=== PATIENT | female | born 1960 | race Caucasian/White ===

== ENCOUNTER 2017-06-08 08:59 | Emergency (ER) | payer MEDICARE, OTHER ==
[2017-06-08 09:16] VITALS: BP 123/71
[2017-06-08] MEDS ORDERED: Triamcinolone Acetonide 40 MG/ML 1 ML MDV INJECT ONE (09:27)
[2017-06-08] MEDS ORDERED: hydrOXYzine HCl 50 MG/ML SDV IM ONE (09:29)
--- NOTE | 2017-06-12 08:10 | ER ---
Date of Service: 06/08/2017 HISTORY OF PRESENT ILLNESS: Sandra presents to the emergency room with complaints of rash that she has been experiencing for the past 1 to 2 days. She states that they are extremely pruritic and located primarily on her torso. She states that she has been experiencing this since yesterday. She states that she has not been experiencing any fever or chills or throat tightness. She denies any exposure to any known allergens. PAST MEDICAL HISTORY: 1. Breast cancer. 2. Type 2 diabetes mellitus. 3. Depression. 4. Dyslipidemia. 5. Bipolar disorder. MEDICATIONS: 1. Metformin. 2. Bupropion. 3. Lipitor. 4. Metoprolol succinate. 5. Lisinopril. 6. Victoza. 7. Lasix. 8. Depakote. 9. Arimidex. 10.Fosamax. ALLERGIES: Penicillin. REVIEW OF SYSTEMS: Denies any fever, chills, chest tightness, shortness of breath, throat tightness, nausea, vomiting or diarrhea. Please see history of present illness. PHYSICAL EXAMINATION: General: This is a 56-year-old female patient, who is in no acute distress. Vital Signs: Heart rate is 109, blood pressure is 123/71, temperature is 36.1, respiratory rate 16. Skin: Warm, pink, and dry. HEENT: Head: Normocephalic, atraumatic. Eyes, PERRLA. Extraocular movements are intact. Mouth, oral mucosa is moist. Lungs: Clear to auscultation. Heart: Regular rate and rhythm. Skin: Does have some scattered pruritic raised erythematous regions to her torso. No obvious urticaria noted. Neurologic: She is alert, oriented, and answers all questions appropriately. ASSESSMENT: Allergic reaction. PLAN: The patient was given injection of hydroxyzine 50 mg IM and triamcinolone 40 mg IM. The patient will be discharged. We will start her on prednisone 40 mg once daily for 5 days. She can continue to take Benadryl 50 mg every 4 to 6 hours as needed for itching. All questions were answered. MWK: 06/12/2017 05:54:08 MODL: 06/12/2017 06:15:11 /[id number]
== END 2017-06-08 09:50 | disposition home or self-care (01) ==
LOC: VM.ED 08:59
DX: T78.40XA Allergy, unspecified, initial encounter (principal); L29.9 Pruritus, unspecified; L53.9 Erythematous condition, unspecified; E11.9 Type 2 diabetes mellitus without complications; E78.5 Hyperlipidemia, unspecified; F31.9 Bipolar disorder, unspecified; Z79.84 Long term (current) use of oral hypoglycemic drugs; Z85.3 Personal history of malignant neoplasm of breast; Z88.0 Allergy status to penicillin
CPT/HCPCS: 96372; 99282; J3301; J3410

== ENCOUNTER 2017-11-22 10:09 | Emergency (ER) | payer MEDICARE, SELFPAY ==
[2017-11-22 11:16] VITALS: BP 132/72
[2017-11-22 11:30] LABS: CHLORIDE,CL 103 mmol/L (98-107); SODIUM,NA 138 mmol/L (136-145)
[2017-11-22] MEDS ORDERED: Iopamidol 612 MG/ML 100 ML Bottle IVPUSH ONE (12:35)
--- NOTE | 2017-11-22 19:06 | EDM.PDOC ---
ED HPI GENERAL MEDICAL PROBLEM - General Chief Complaint: Chest Pain Stated Complaint: CHEST PAIN Time Seen by Provider: 11/22/17 10:20 Source of Information: Reports: Patient History Limitations: Reports: No Limitations - History of Present Illness INITIAL COMMENTS - FREE TEXT/NARRATIVE: PtSabina presents to ER with complaints of L anteriolateral chest wall pain, worse with movement. She denies any fever or chills. She states that she recently finished radiation of breast cancer. She denies any substernal chest pain. No jaw, arm, neck or back pain. She has a history of CAD and states the discomfort is not similar to her cardiac type pain. She denies any recent trips or moments of immobility. Onset: Today Onset Date: 11/22/17 Onset Time: 19:05 Duration: Intermittent Location: Reports: Chest Quality: Reports: Burning, Sharp, Throbbing Treatments COUNTER TACKER: Reports: Nitroglycerin, Other Medication(s) Other Treatments COUNTER TACKER: baby aspirin - Related Data Allergies Allergy/AdvReac Type Severity Reaction Status Date / Time Penicillins Allergy Swelling Verified 11/22/17 10:58 Home Meds: Home Meds Alendronate [Fosamax] 70 mg PO WEEKLY 03/29/16 [History] Anastrozole [Arimidex] 1 mg PO DAILY 03/29/16 [History] Divalproex Sodium [Depakote] 250 mg PO BID 03/29/16 [History] Furosemide [Lasix] 20 mg PO DAILY 03/29/16 [History] Liraglutide [Victoza] 1.2 ml SQ DAILY 03/29/16 [History] Lisinopril 10 mg PO DAILY 03/29/16 [History] Metoprolol Succinate 50 mg PO DAILY 03/29/16 [History] atorvaSTATin [Lipitor] 40 mg PO DAILY 03/29/16 [History] buPROPion [buPROPion XL] 150 mg PO DAILY 03/29/16 [History] metFORMIN HCl [Metformin HCl] 1,000 mg PO BID 03/29/16 [History] Past Medical History Cardiovascular History: Reports: CAD, High Cholesterol, Hypertension, [place] Neurological History: Reports: TIA Psychiatric History: Reports: Bipolar Endocrine/Metabolic History: Reports: Diabetes, Type II Oncologic (Cancer) History: Reports: Breast Social & Family History - Tobacco Use Smoking Status *Q: Current Every Day Smoker Years of Tobacco use: 37 Packs/Tins Daily: 1 - Recreational Drug Use Recreational Drug Use: No ED ROS GENERAL - Review of Systems Review Of Systems: See Below Constitutional: Reports: No Symptoms HEENT: Reports: No Symptoms Respiratory: Reports: Pleuritic Chest Pain, Other (recent radiation) Cardiovascular: Reports: No Symptoms. Denies: Dyspnea on Exertion, Edema, Lightheadedness, Orthopnea, Palpitations, PND Endocrine: Reports: No Symptoms GI/Abdominal: Reports: No Symptoms : Reports: No Symptoms Musculoskeletal: Reports: Other (L anteriolateral chest pain) Skin: Reports: No Symptoms Neurological: Reports: No Symptoms Psychiatric: Reports: No Symptoms Hematologic/Lymphatic: Reports: No Symptoms Immunologic: Reports: No Symptoms ED EXAM, GENERAL - Physical Exam Exam: See Below Exam Limited By: No Limitations General Appearance: Alert, WD/WN, No Apparent Distress Eye Exam: Bilateral Eye: EOMI, Normal Fundi Ears: Normal External Exam, Normal Canal, Hearing Grossly Normal, Normal TMs Nose: Normal Inspection, Normal Mucosa, No Blood Throat/Mouth: Normal Inspection, Normal Lips, Normal Teeth, Normal Gums, Normal Oropharynx, Normal Voice, No Airway Compromise Head: Atraumatic, Normocephalic Neck: Normal Inspection, Supple, Non-Tender, Full Range of Motion Respiratory/Chest: No Respiratory Distress, Lungs Clear, Normal Breath Sounds, No Accessory Muscle Use, Chest Non-Tender Cardiovascular: Normal Peripheral Pulses, Regular Rate, Rhythm, No Edema, No Gallop, No JVD, No Murmur, No Rub GI/Abdominal: Normal Bowel Sounds, Soft, Non-Tender, No Organomegaly, No Distention, No Abnormal Bruit, No Mass (Female) Exam: Deferred Rectal (Female) Exam: Deferred Back Exam: Normal Inspection, Full Range of Motion Extremities: Normal Inspection, Normal Range of Motion, Non-Tender, Normal Capillary Refill, No Pedal Edema Neurological: Alert, Oriented, CN II-XII Intact, Normal Cognition, Normal Gait, Normal Reflexes, No Motor/Sensory Deficits Psychiatric: Normal Affect, Normal Mood Skin Exam: Warm, Dry, Intact, Normal Color, No Rash Lymphatic: No Adenopathy EKG INTERPRETATION Rhythm: NSR [place]: Normal P-Wave: Present QRS: Normal ST-T: Normal QT: Normal Course - Vital Signs Last Recorded V/S: Last Vital Signs Temp 37.2 C 11/22/17 10:10 Pulse 96 11/22/17 10:10 Resp 20 11/22/17 10:10 BP 132/72 11/22/17 10:10 Pulse Ox 98 11/22/17 10:10 - Orders/Labs/Meds Orders: Active Orders 24 hr Category Date Time Status EKG Documentation Completion [RC] STAT Care 11/22/17 10:36 Active Chest 2V [CR] Stat Exams 11/22/17 10:36 Taken PE Chest [Ang Chest] [CT] Stat Exams 11/22/17 11:38 Taken Labs: Laboratory Tests 11/22/17 11/22/17 11/22/17 Range/Units 10:56 10:56 10:56 WBC 8.1 (4.0-10.0) x10^3/uL RBC 4.13 (4.00-5.50) x10^6/uL Hgb 12.4 D (12.0-16.0) g/dL Hct 37.6 (33.0-47.0) % MCV 91.0 (78.0-93.0) fL MCH 30.0 (26.0-32.0) pg MCHC 33.0 (32.0-36.0) g/dL RDW Coeff of Izabela 14.0 (10.0-15.0) % Plt Count 199 D (130-400) x10^3/uL Neut % (Auto) 66.6 (50.0-80.0) % Lymph % (Auto) 25.1 (25.0-50.0) % [place] % (Auto) 6.3 (2.0-11.0) % Eos % (Auto) 1.8 (0.0-4.0) % Baso % (Auto) 0.2 (0.2-1.2) % PT 10.4 (9.8-11.8) SEC INR 1.0 L (2.0-3.5) D-Dimer, Quantitative 0.66 H (<=0.58) mg/LFEU Sodium 138 (136-145) mmol/L Potassium 4.3 (3.5-5.1) mmol/L Chloride 103 (98-107) mmol/L Carbon Dioxide 25 (21-32) mmol/L BUN 14 (7-18) mg/dL Creatinine 0.9 (0.55-1.02) mg/dL Est Cr Clr Drug Dosing 65.45 mL/min Estimated GFR (MDRD) > 60 Glucose 147 H (74-106) mg/dL Calcium 9.3 (8.5-10.1) mg/dL Corrected Calcium 9.62 (8.5-10.1) mg/dL Total Bilirubin 0.4 (0.2-1.0) mg/dL AST 22 (15-37) U/L ALT 31 (14-59) U/L Alkaline Phosphatase 79 (46-116) U/L Troponin I < 0.017 (<=0.056) ng/mL C-Reactive Protein < 0.2 (<=0.9) mg/dL NT-Pro-B Natriuret Pep 154 H (<=125) pg/mL Total Protein 7.4 (6.4-8.2) g/dL Albumin 3.6 (3.4-5.0) g/dL Globulin 3.8 Albumin/Globulin Ratio 0.95 Meds: Medications Discontinued Medications Generic Name Dose Route Start Last Admin Trade Name Freq PRN Reason Stop Dose Admin Iopamidol 100 ml 11/22/17 12:35 11/22/17 12:36 Isovue-300 (61%) IVPUSH 11/22/17 12:36 100 ml ONETIME ONE Administration - Radiology Interpretation Free Text/Narrative:: CXR within normal limits. CT angiogram of chest negative for PE Departure - Departure Time of Disposition: 14:35 Disposition: Home, Self-Care 01 Condition: Good Clinical Impression: Chest wall pain, Pain after radiation therapy - Discharge Information Instructions: Chest Wall Pain, [id number], External Beam Radiation Therapy, Care After Referrals: Myles Collado MD [Primary Care Provider] - Forms: ED Department Discharge Additional Instructions: [place] 5/325mg 1 every 6 hours as needed for pain. Ibuprofen 600mg every 6 hours for pain. Prednisone 40mg once daily until gone. Follow-up in clinic next week for recheck. - My Orders Last 24 Hours: My Active Orders 11/22/17 10:36 EKG Documentation Completion [RC] STAT Chest 2V [CR] Stat 11/22/17 11:38 PE Chest [Ang Chest] [CT] Stat - Assessment/Plan Last 24 Hours: My Active Orders 11/22/17 10:36 EKG Documentation Completion [RC] STAT Chest 2V [CR] Stat 11/22/17 11:38 PE Chest [Ang Chest] [CT] Stat
== END 2017-11-22 14:35 | disposition home or self-care (01) ==
LOC: VM.ED 10:09
DX: R07.89 Other chest pain (principal); G89.18 Other acute postprocedural pain; C50.919 Malignant neoplasm of unspecified site of unspecified female breast; E78.00 Pure hypercholesterolemia, unspecified; I10 Essential (primary) hypertension; E11.9 Type 2 diabetes mellitus without complications; F17.210 Nicotine dependence, cigarettes, uncomplicated; Z88.0 Allergy status to penicillin; Z79.899 Other long term (current) drug therapy
CPT/HCPCS: 36415; 71046; 71275; 80053; 83880; 84484; 85025; 85379; 85610; 86140; 93005; 99284-GF; 99285; Q9967

== ENCOUNTER 2020-04-25 07:24 | Emergency (ER) | payer OTHER, MEDICARE ==
[2020-04-25 07:59] VITALS: PULSE 79
[2020-04-25 09:06] LABS: CHLORIDE,CL 82 mmol/L (98-107)
[2020-04-25 09:07] LABS: ANION GAP 9.7 mmol/L (10-20); SODIUM,NA 120 mmol/L (136-145)
[2020-04-25 09:08] VITALS: BP 100/58
--- NOTE | 2020-04-25 09:39 | EDM.PDOC ---
ED HPI GENERAL MEDICAL PROBLEM - General Chief Complaint: General Stated Complaint: ER Time Seen by Provider: 04/25/20 08:20 Source of Information: Reports: Patient, Family History Limitations: Reports: No Limitations - History of Present Illness INITIAL COMMENTS - FREE TEXT/NARRATIVE: Patient comes to the emergency department today from home with her with concerns of a possible stroke. This patient is currently on hospice for metastatic breast cancer that has metastasized not only to her lungs liver but also her bones. Yesterday she felt quite a bit more generalized weakness and some questionable paresthesias of her hands and her feet. She had fallen once yesterday while she was leaning over to pick something up. This morning acutely about 715 she felt that her mouth was very dry and it was thick speech. She continued to have the paresthesias in her hands and her feet. She also felt that she was somewhat weak on the left more than the right. She denies any chest pain shortness of breath or difficulty breathing. No palpitations. No visual acuity changes no diplopia. No headache. No neck pain. No fever no chills. No shortness of breath or difficulty breathing. No cough or congestion. No cold exposure COVID concerns. No abdominal pain nausea or vomiting. She has not been eating or drinking much for fluids. They did contact the hospice nurse that was telephonic case manager and she was in route to their house to evaluate them but they felt that they needed to come to the emergency department. She has had no hematuria dysuria or urinary frequency. No black tarry stools or diarrhea. Or constipation. Once hospice nurse did arrive to the emergency department she did inform us that the patient has been pretty much noncompliant with medical therapy to include diuretics. They have increased her diuretics over the past couple of days for which she has not done. - Related Data Allergies Allergy/AdvReac Type Severity Reaction Status Date / Time Penicillins Allergy Swelling Verified 04/25/20 08:29 Home Meds: Home Meds Alendronate [Fosamax] 70 mg PO WEEKLY 03/29/16 [History] Anastrozole [Arimidex] 1 mg PO DAILY 03/29/16 [History] Divalproex Sodium [Depakote] 250 mg PO BID 03/29/16 [History] Furosemide [Lasix] 20 mg PO DAILY 03/29/16 [History] Liraglutide [Victoza] 1.2 ml SQ DAILY 03/29/16 [History] Lisinopril 10 mg PO DAILY 03/29/16 [History] Metoprolol Succinate 50 mg PO DAILY 03/29/16 [History] atorvaSTATin [Lipitor] 40 mg PO DAILY 03/29/16 [History] buPROPion [buPROPion XL] 150 mg PO DAILY 03/29/16 [History] metFORMIN HCl [Metformin HCl] 1,000 mg PO BID 03/29/16 [History] Past Medical History Cardiovascular History: Reports: CAD, High Cholesterol, Hypertension, [place] Neurological History: Reports: TIA Psychiatric History: Reports: Bipolar Endocrine/Metabolic History: Reports: Diabetes, Type II Oncologic (Cancer) History: Reports: Bone, Breast, Metastatic Social & Family History - Tobacco Use Smoking Status *Q: Current Status Unknown - Recreational Drug Use Recreational Drug Use: No ED ROS GENERAL - Review of Systems Review Of Systems: Comprehensive ROS is negative, except as noted in HPI. ED EXAM, GENERAL - Physical Exam Exam: See Below Free Text/Narrative:: This is a rather ill-appearing patient. Who is alert appropriate. Speech is cl ear and articulate. Exam Limited By: No Limitations General Appearance: Alert, WD/WN, Other (Ill-appearing with quite a bit of peripheral edema of the arms and the legs.) Eye Exam: Bilateral Eye: Other (Nonicteric) Ears: Normal External Exam Nose: Normal Inspection Throat/Mouth: No: Normal Inspection (Quite a bit of decay in the teeth but nothing acute. Oral mucosa is quite dry.) Head: Atraumatic, Normocephalic Neck: Normal Inspection Respiratory/Chest: No Respiratory Distress, Chest Non-Tender, Decreased Breath Sounds, Wheezing (Inspiratory expiratory wheezing bilaterally without any rhonchi pretty mild wheezing) Cardiovascular: Normal Peripheral Pulses, Regular Rate, Rhythm Peripheral Pulses: 1+: Posterior Tibial (L), Posterior Tibial (R), Dorsalis Pedis (L), Dorsalis Pedis (R), 2+: Radial (L), Radial (R) GI/Abdominal: Normal Bowel Sounds, Soft, Non-Tender, Distended Extremities: Pedal Edema (3-4+ edema of the lower extremities about up to the knees) Neurological: Alert, Oriented, CN II-XII Intact, Normal Cognition, No Motor/Sensory Deficits, Other (Moves all extremities strong and equal to command. No pronator drift. No ataxia.). No: Confused Psychiatric: Normal Affect Skin Exam: Dry, No Rash, Cool, Pallor Course - Vital Signs Last Recorded V/S: Last Vital Signs Temp 93.5 F L 04/25/20 07:58 Pulse 79 04/25/20 07:58 Resp 18 04/25/20 07:58 BP 100/58 L 04/25/20 09:07 Pulse Ox 95 04/25/20 09:07 - Orders/Labs/Meds Labs: Laboratory Tests 04/25/20 04/25/20 Range/Units 08:42 08:42 WBC 12.5 H (4.0-10.0) x10^3/uL RBC 4.67 (4.00-5.50) x10^6/uL Hgb 13.0 (12.0-16.0) g/dL Hct 36.6 (33.0-47.0) % MCV 78.4 D (78.0-93.0) fL MCH 27.8 (26.0-32.0) pg MCHC 35.5 (32.0-36.0) g/dL RDW Coeff of Izabela 14.1 (10.0-15.0) % Plt Count 353 D (130-400) x10^3/uL Neut % (Auto) 80.6 H (50.0-80.0) % Lymph % (Auto) 12.0 L (25.0-50.0) % [place] % (Auto) 6.7 (2.0-11.0) % Eos % (Auto) 0.6 (0.0-4.0) % Baso % (Auto) 0.1 L (0.2-1.2) % Sodium 120 L* (136-145) mmol/L Potassium 2.7 L* (3.5-5.1) mmol/L Chloride 82 L (98-107) mmol/L Carbon Dioxide 31 (21-32) mmol/L Anion Gap 9.7 L (10-20) mmol/L BUN 20 H (7-18) mg/dL Creatinine 1.5 H (0.55-1.02) mg/dL Est Cr Clr Drug Dosing TNP Estimated GFR (MDRD) 35 Glucose 262 H (74-106) mg/dL Calcium 9.2 (8.5-10.1) mg/dL Corrected Calcium 9.84 (8.5-10.1) mg/dL Magnesium 1.4 L (1.8-2.4) mg/dL Total Bilirubin 1.0 (0.2-1.0) mg/dL AST 58 H (15-37) U/L ALT 26 (14-59) U/L Alkaline Phosphatase 124 H (46-116) U/L Total Protein 7.5 (6.4-8.2) g/dL Albumin 3.2 L (3.4-5.0) g/dL Globulin 4.3 Albumin/Globulin Ratio 0.74 - Re-Assessments/Exams Free Text/Narrative Re-Assessment/Exam: 04/25/20 19:51 I really do not find any overt signs of stroke initially upon arrival. I am unsure of how aggressive the family and the patient would like to be with her being on hospice as well as her rather rapid decline over the past week or so according to the as well as the patient. They do not want to be aggressive such as a CAT scan at this time and would like to wait for the hospice nurse to arrive for guidance. I will do some simple screening labs to evaluate for electrolyte abnormalities or other concerns they were comfortable with this plan. Her sodium is quite low at 120 which is down from 127. Her potassium is 2.7 which is down from 3.6 just 3 days ago. And her magnesium is 1.4 and there is no recent magnesium to compare to. Hospice nurse did discuss with the attending hospice provider. They would like to manage the patient on their own for the replenishment of the electrolyte abnormality. The patient and her are comfortable with this plan and her questions are answered and they are discharged home. Departure - Departure Time of Disposition: 09:30 Disposition: Home, Self-Care 01 Clinical Impression: Hyponatremia, Hypokalemia, Hypomagnesemia, Hospice care patient, Metastatic breast cancer - Discharge Information Referrals: Ron Coyne PA-C [Primary Care Provider] - Forms: ED Department Discharge Additional Instructions: Continue with the previous therapies from Hospice. Hospice will address the concerns of the sodium, magnesium and potassium Recheck as needed. Sepsis Event Note (ED) - Evaluation Sepsis Screening Result: No Definite Risk - Focused Exam Vital Signs: Vital Signs Temp Pulse Resp BP Pulse Ox 07/20/20 09:07 100/58 L 95 07/20/20 07:58 93.5 F L 79 18 92/65 88 L
== END 2020-04-25 10:00 | disposition home or self-care (01) ==
LOC: VM.ED 07:24
DX: C50.919 Malignant neoplasm of unspecified site of unspecified female breast (principal); E87.1 Hypo-osmolality and hyponatremia; E87.6 Hypokalemia; E83.42 Hypomagnesemia; R60.0 Localized edema; I10 Essential (primary) hypertension; E78.00 Pure hypercholesterolemia, unspecified; I25.10 Atherosclerotic heart disease of native coronary artery without angina pectoris; I25.2 Old myocardial infarction; F31.9 Bipolar disorder, unspecified; E11.9 Type 2 diabetes mellitus without complications; Z88.0 Allergy status to penicillin; Z79.899 Other long term (current) drug therapy; Z79.84 Long term (current) use of oral hypoglycemic drugs
CPT/HCPCS: 36415; 80053; 83735; 85025; 99284; 99284-GF